=== PATIENT | male | born 1995 | race American Indian/Alaskan Native ===

== ENCOUNTER 2017-02-04 17:23 | Emergency (ER) | payer MEDICAID, OTHER ==
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
[2017-02-04 19:22] LABS: CHLORIDE,CL 103 mmol/L (101-111); SODIUM,NA 140 mmol/L (135-145)
== END 2017-02-04 19:34 | disposition home or self-care (01) ==
LOC: DL.ED 17:23
DX: G44.319 Acute post-traumatic headache, not intractable (principal); M54.2 Cervicalgia; V89.2XXA Person injured in unspecified motor-vehicle accident, traffic, initial encounter
CPT/HCPCS: 36415; 70450; 72125; 80053; 85025; 99284

== ENCOUNTER 2017-03-14 10:36 | Emergency (ER) | payer MEDICAID, OTHER ==
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
[2017-03-14 11:03] LABS: CHLORIDE,CL 110 mmol/L (101-111); SODIUM,NA 145 mmol/L (135-145)
[2017-03-14] MEDS ORDERED: Potassium Chloride 10 MEQ Tab.ER PO ONE (11:09)
== END 2017-03-14 11:53 | disposition home or self-care (01) ==
LOC: DL.ED 10:36
DX: M54.2 Cervicalgia (principal); F10.920 Alcohol use, unspecified with intoxication, uncomplicated; E87.6 Hypokalemia; V89.2XXA Person injured in unspecified motor-vehicle accident, traffic, initial encounter; F17.210 Nicotine dependence, cigarettes, uncomplicated
CPT/HCPCS: 36415; 70450; 72125; 80053; 80305; 85025; 85610; 99291; 99292; G0480

== ENCOUNTER 2017-10-31 07:45 | Emergency (ER) | payer OTHER ==
--- NOTE | 2017-10-31 07:51 | EDM.PDOC ---
ED HPI GENERAL MEDICAL PROBLEM - General Chief Complaint: Genitourinary Problem Stated Complaint: PAIN [id number] Time Seen by Provider: 10/31/17 07:51 Source of Information: Reports: Patient, RN, RN Notes Reviewed History Limitations: Reports: No Limitations - History of Present Illness INITIAL COMMENTS - FREE TEXT/NARRATIVE: C/O a swollen area with severe pain and "hot" feeling at skin fold and Rt lateral scrotum. Denies fevers. Admits to chills. Onset: Gradual Duration: Constant, Getting Worse Location: Reports: Other (scrotum) Quality: Reports: Ache, Pressure Severity: Severe Improves with: Reports: None Worsens with: Reports: Other (palpation/touch) Associated Symptoms: Reports: No Other Symptoms Left Penis Pain Score (Numeric/FACES): 10 - Related Data Allergies Allergy/AdvReac Type Severity Reaction Status Date / Time No Known Allergies Allergy Verified 02/04/17 18:04 Home Meds: Home Meds Acetaminophen [Tylenol] 650 mg PO Q4H PRN 02/04/17 [History] Past Medical History - Past Health History Medical/Surgical History: Denies Medical/Surgical History Social & Family History - Family History Family Medical History: Noncontributory - Living Situation & Occupation Living situation: Reports: with Significant Other Occupation: Employed ED ROS GENERAL - Review of Systems Review Of Systems: ROS reveals no pertinent complaints other than HPI. ED EXAM, GENERAL - Physical Exam Exam: See Below Exam Limited By: No Limitations General Appearance: Alert, WD/WN, No Apparent Distress Nose: Normal Inspection Throat/Mouth: Normal Oropharynx, Normal Voice, No Airway Compromise Head: Atraumatic, Normocephalic Neck: Normal Inspection Respiratory/Chest: No Respiratory Distress, Lungs Clear, Normal Breath Sounds, No Accessory Muscle Use, Chest Non-Tender Cardiovascular: Regular Rate, Rhythm, Bradycardia GI/Abdominal: Normal Bowel Sounds, Soft, Non-Tender, No Organomegaly, No Distention, No Abnormal Bruit, No Mass (Male) Exam: Circumcised, Inguinal Lymphadenopathy (Rt), Scrotal Swelling ( Abscess Rt lateral scrotum, acutely tender, flucutant, moderate peripheral erythema and increased warmth), Scrotum Tenderness (R). No: Testicular Mass Rectal (Males) Exam: Deferred Back Exam: Normal Inspection Extremities: Normal Inspection Neurological: Alert, Oriented, No Motor/Sensory Deficits Psychiatric: Normal Mood ED I&D PROCEDURES - I&D Site: Rt scrotum Skin prep: Chlorhexidine (Hibiciens), Saline, Sterile Drape Local anesthesia - Lidocaine (Xylocaine): 1% Plain Local Anesthetic Volume: Other (15cc) Area Incised With: 11 Blade Drainage: Purulent, Large Amount Probed to Break Up Loculations: Yes Packed With: 1/4 in. Iodoform Sterile Dressing: Other (pad) Complications: No Course - Vital Signs Last Recorded V/S: Last Vital Signs Temp 36.4 C 10/31/17 07:58 Pulse 47 L 10/31/17 07:58 Resp 16 10/31/17 07:58 BP 137/78 10/31/17 07:58 Pulse Ox 100 10/31/17 07:58 - Orders/Labs/Meds Orders: Active Orders 24 hr Category Date Time Status Peripheral IV Care [RC] . DIRECTED Care 10/31/17 08:20 Active CULTURE WOUND + SMEAR [RM] Stat Lab 10/31/17 08:24 Ordered Sodium Chloride 0.9% [Saline Flush] Med 10/31/17 08:20 Active 10 ml FLUSH ASDIRECTED PRN Vancomycin [Vancocin] 1 gm Med 10/31/17 08:22 Active Sodium Chloride 0.9% [Normal Saline] 250 ml IV ONETIME Peripheral IV Insertion Adult [OM.PC] Stat Oth 10/31/17 08:20 Ordered Medication Orders Vancomycin HCl 1 gm/ Sodium (Chloride) 250 mls @ 167 mls/hr IV ONETIME ONE Stop: 10/31/17 09:51 Last Admin: 10/31/17 08:41 Dose: 167 mls/hr Sodium Chloride (Saline Flush) 10 ml FLUSH ASDIRECTED PRN PRN Reason: Keep Vein Open Last Admin: 10/31/17 08:26 Dose: 10 ml Labs: Laboratory Tests 10/31/17 10/31/17 Range/Units 08:28 08:28 WBC 10.4 H (5.0-10.0) 10^3/uL RBC 5.01 (4.6-6.2) 10^6/uL Hgb 14.9 (14.0-18.0) g/dL Hct 43.7 (40.0-54.0) % MCV 87.2 (80-100) fL MCH 29.7 (27.0-34.0) pg MCHC 34.1 (33.0-35.0) g/dL Plt Count 181 (150-450) 10^3/uL Neut % (Auto) 61.6 (42.2-75.2) % Lymph % (Auto) 25.2 (20.5-50.1) % [place] % (Auto) 11.6 H (2-8) % Eos % (Auto) 1.4 (1.0-3.0) % Baso % (Auto) 0.2 (0.0-1.0) % C-Reactive Protein 1.1 (0.0-1.3) mg/dL Meds: Medications Generic Name Dose Route Start Last Admin Trade Name Freq PRN Reason Stop Dose Admin Vancomycin HCl 1 gm/ Sodium 250 mls @ 167 mls/hr 10/31/17 08:22 10/31/17 08: 41 Chloride IV 10/31/17 09:51 167 mls/hr ONETIME ONE Administration Sodium Chloride 10 ml 10/31/17 08:20 10/31/17 08:26 Saline Flush FLUSH 10 ml ASDIRECTED PRN Administration Keep Vein Open Discontinued Medications Generic Name Dose Route Start Last Admin Trade Name Freq PRN Reason Stop Dose Admin Diphenhydramine HCl 25 mg 10/31/17 08:21 10/31/17 08:39 Benadryl IVPUSH 10/31/17 08:22 25 mg ONETIME ONE Administration Hydromorphone HCl 1 mg 10/31/17 08:23 10/31/17 08:54 Dilaudid IVPUSH 10/31/17 08:24 1 mg ONETIME ONE Administration Hydromorphone HCl Confirm 10/31/17 08:33 10/31/17 08:42 Dilaudid Administered 10/31/17 08:34 Not Given Dose 0.5 mg .ROUTE .STK-MED ONE Hydromorphone HCl 1 mg 10/31/17 09:09 10/31/17 09:21 Dilaudid IVPUSH 10/31/17 09:10 1 mg ONETIME ONE Administration Ketorolac Tromethamine 30 mg 10/31/17 09:09 10/31/17 09:23 Toradol IVPUSH 10/31/17 09:10 30 mg ONETIME ONE Administration Lidocaine HCl 30 ml 10/31/17 08:23 10/31/17 08:54 Xylocaine-Mpf 1% INJECT 10/31/17 08:24 30 ml ONETIME ONE Administration Departure - Departure Time of Disposition: 09:43 Disposition: Home, Self-Care 01 Condition: Good Clinical Impression: Abscess of scrotal wall, Cellulitis of scrotum - Discharge Information Instructions: Incision and Drainage, Care After, Skin Abscess, [id number] Forms: ED Department Discharge Additional Instructions: Rx: Clindamycin 300mg Rx: [place] 5mg/325mg Follow up in clinic in 1 to 2 days for recheck and packing removal. - My Orders Last 24 Hours: My Active Orders 10/31/17 08:20 Peripheral IV Care [RC] . DIRECTED Sodium Chloride 0.9% [Saline Flush] 10 ml FLUSH ASDIRECTED PRN Peripheral IV Insertion Adult [OM.PC] Stat 10/31/17 08:22 Vancomycin [Vancocin] 1 gm Sodium Chloride 0.9% [Normal Saline] 250 ml IV ONETIME 10/31/17 08:24 CULTURE WOUND + SMEAR [RM] Stat - Assessment/Plan Last 24 Hours: My Active Orders 10/31/17 08:20 Peripheral IV Care [RC] . DIRECTED Sodium Chloride 0.9% [Saline Flush] 10 ml FLUSH ASDIRECTED PRN Peripheral IV Insertion Adult [OM.PC] Stat 10/31/17 08:22 Vancomycin [Vancocin] 1 gm Sodium Chloride 0.9% [Normal Saline] 250 ml IV ONETIME 10/31/17 08:24 CULTURE WOUND + SMEAR [RM] Stat
[2017-10-31] MEDS ORDERED: Sodium Chloride 0.9% 10 ML Syringe FLUSH PRN (08:20)
[2017-10-31] MEDS ORDERED: diphenhydrAMINE 50 MG/ML SDV IVPUSH ONE (08:21)
[2017-10-31] MEDS ORDERED: HYDROmorphone 0.5 MG/0.5 ML Syringe IVPUSH ONE ×2 (08:23→09:09)
[2017-10-31] MEDS ORDERED: Lidocaine 1% 30 ML SDV INJECT ONE (08:23)
[2017-10-31] MEDS ORDERED: HYDROmorphone 0.5 MG/0.5 ML Syringe ONE (08:33)
[2017-10-31] MEDS ORDERED: Ketorolac 30 MG/ML SDV IVPUSH ONE (09:09)
== END 2017-10-31 10:25 | disposition home or self-care (01) ==
LOC: DL.ED 07:45
DX: N49.2 Inflammatory disorders of scrotum (principal)
CPT/HCPCS: 36415; 55100; 85025; 86140; 87070; 87205; 96365; 96366; 96375; 99283; J1170; J1200; J1885; J3370; J7050